=== PATIENT | male | born 1940 | race Caucasian/White ===

== ENCOUNTER → 2017-10-26 | Outpatient (CLI) | payer MEDICARE, OTHER ==
[~2017-10-26] MED LIST: APAP650 PO; ASPIR 8181 MG PO; ATORVASTATIN CA40 MG PO; BRILINTA90 MG PO; CARVEDILOL3.125 MG PO; CHOLESTEROL MED; CIPROFLOXIN HC2.5 M1 OPHTHALMIC; ERYTHROMYCIN E3.5 G1 OPHTHALMIC; FLEXERIL PO; HYDROCODONE-AP1 EAC6 PO; LISINOPRIL2.5 M1 PO; NAPROSYN375 MG PO; NITROGLYCERIN0.4 MG SUBLING; NOHOMEMEDICATIONS; NORCO 5-325 TA1 EACH PO; PERCOCET 5-3251 EACH PO; PERCOCET PO; PRADAXA75 MG PO; PROTONIX40 M1 PO; STOMACH MED; TAMSULOSIN HCL0.4 MG PO; TYLENOL325 MG PO; [UNRECOGNIZED DRUG - REMARK] PO
[2017-10-26 09:06] LABS: ALBUMIN 3.8 g/dL (3.4-5.0); ALKALINE PHOSPHATASE 100 U/L (46-116); CHOLESTEROL 171 mg/dL (<200); DIRECT BILIRUBIN 0.2 mg/dL (<0.1-0.3); HDL CHOLESTEROL 52 mg/dL (>40); LDL CHOLESTEROL 96 mg/dL (<100); SGOT 25 U/L (15-37); SGPT 31 U/L (30-65); TC:HDL 3.3 Ratio (Not establshd); TOTAL BILIRUBIN 0.7 mg/dL (<0.1-1.0); TOTAL PROTEIN 6.6 g/dL (6.4-8.2); TRIGLYCERIDE 115 mg/dL (<150); VLDL 23 mg/dL (<40)
[2017-10-26 09:08] LABS: SERUM ASSESSMENT Clear
== END ==
LOC: M.LAB 08:07
PROVIDERS: Family Medicine
DX: I70.90 Unspecified atherosclerosis (principal)

== ENCOUNTER → 2017-10-27 | Outpatient (CLI) | payer MEDICARE, OTHER ==
[2017-10-27 08:35] LABS: HEMATOCRIT 47.2 % (42.0-52.0); MCH 30.4 pg (26.0-34.0); MCHC 33.9 g/dL (28.0-37.0); MCV 89.8 fL (80.0-100.0); MPV 9.1 fl. (7.2-11.1); RBC 5.26 mil/uL (4.50-6.00); RDW-CV 13.5 % (10.5-14.5); WBC 4.6 thou/uL (4.0-11.0)
[2017-10-27 08:43] LABS: URINE BILIRUBIN NEGATIVE (Negative); URINE BLOOD 1+ (Negative); URINE CLARITY CLEAR; URINE COLOR YELLOW; URINE GLUCOSE-RANDOM NEGATIVE (Negative); URINE KETONES NEGATIVE (Negative); URINE LEUKOCYTES 1+ (Negative); URINE NITRITE NEGATIVE (Negative); URINE PROTEIN NEGATIVE (Negative); URINE SPECIFIC GRAVITY 1.015 (1.005-1.030); URINE UROBILINOGEN 0.2 E.U./dl (0.2-1.0)
[2017-10-27 08:53] LABS: BACTERIA 1-9 Few /HPF (None Seen); CASTS None Seen /LPF (None Seen); CRYSTALS None Seen /LPF (None Seen); MUCUS 0-3 Light strn/LPF (None Seen); SQUAMOUS 0-3 Few /LPF (0-3); URINE RBC 3-10 Few /HPF (0-2); URINE WBC 6-15 Few /HPF (0-5)
[2017-10-27 08:58] LABS: ALBUMIN 3.8 g/dL (3.4-5.0); CALCIUM 8.8 mg/dL (8.5-10.1); CREATININE 1.3 mg/dL (0.6-1.3); PHOSPHORUS* 2.7 mg/dL (2.5-4.9); POTASSIUM 4.8 mmol/L (3.5-5.1)
[2017-10-28 02:11] LABS: GLYCOHEMOGLOBIN (HGB A1C) 5.3 % (4.8-5.6)
== END ==
LOC: M.LAB 08:11
PROVIDERS: Family Medicine
DX: C64.9 Malignant neoplasm of unspecified kidney, except renal pelvis (principal); I70.90 Unspecified atherosclerosis; R79.89 Other specified abnormal findings of blood chemistry; I10 Essential (primary) hypertension; I25.10 Atherosclerotic heart disease of native coronary artery without angina pectoris; E78.5 Hyperlipidemia, unspecified

== ENCOUNTER → 2018-01-20 | Outpatient (CLI) | payer MEDICARE, OTHER ==
[2018-01-20 06:57] LABS: CREATININE 1.4 mg/dL (0.6-1.3)
== END ==
LOC: M.CT 06:33 → M.LAB 07:00 → M.CT 08:00
PROVIDERS: Family Medicine
DX: I70.0 Atherosclerosis of aorta (principal); I70.8 Atherosclerosis of other arteries; J43.9 Emphysema, unspecified; R91.1 Solitary pulmonary nodule; N18.9 Chronic kidney disease, unspecified; Z90.5 Acquired absence of kidney; Z85.828 Personal history of other malignant neoplasm of skin

== ENCOUNTER 2018-07-05 17:17 | Inpatient (IN) | payer MEDICARE, OTHER ==
[~2018-07-05] VITALS: Ht 182.9 cm; Wt 72.1 kg
--- NOTE | ~2018-07-05 | OP ---
[facility] [address] [place] [address] OPERATIVE REPORT Name: KAILYN DYER Room: [address] IN M.R.#: [id number] Admission: 07/05/18 Attend Phys: Marely Petersen Discharge: Date of : 36 Report #: [id number] THIS REPORT FOR: //name// CC: AZIZA Hdz DATE OF SERVICE: 07/06/2018 PREOPERATIVE DIAGNOSIS: Clot retention. POSTOPERATIVE DIAGNOSIS: Clot retention. PROCEDURE: Cystourethroscopy, evacuation of clots and fulguration of bladder bleeding. SURGEON: Lissa Pretty M.D. ANESTHESIA: General. ESTIMATED BLOOD LOSS: None. COMPLICATIONS: None. SPECIMENS: None. INDICATION FOR PROCEDURE: The patient is an 78-year-old male who has a complex history. He underwent TURBT and left ureteroscopy with Dr. Hays on 07/04. He presented yesterday to the office for a voiding trial. He was having gross hematuria at that time, but no clots. Reyes was removed, and initially, they replaced the catheter when I guess he could not void. The urine became increasingly more bloody and clotted off, and he presented to [place] [facility]. Irrigation at the bedside did not clear him up, and therefore, it was recommended he undergo cystoscopy, clot evacuation and fulguration of any bleeding. Risks of procedure were discussed including but not limited to infection, bleeding, injury to the urethra, bladder, ureters, bladder perforation requiring open repair, cardiopulmonary complications. He voiced understanding and wished to proceed. DESCRIPTION OF PROCEDURE: After informed consent was obtained, the patient was taken back to the operating suite and placed supine. After induction of general anesthesia, he was placed in dorsal lithotomy position. Genitalia were prepped and draped in standard fashion. Rigid cystoscopy was performed. Anterior urethra was normal. Prostate showed visual obstruction and evidence of some cautery in the prostatic urethra. Immediately on entrance into the bladder, visualization was very poor as there was a large [place] [address] OPERATIVE REPORT Name: KAILYN DYER Room: [address] IN [facility].#: [id number] Admission: 07/05/18 Attend Phys: Marely Petersen Discharge: Date of : 38 Report #: [id number] Changed out to a 24-Ugandan resectoscope and using the Marcus evacuator, several 100 mL of clot were evacuated. This was somewhat difficult at times and some of the clot was pretty sticky to the argueta of the bladder, but eventually this was successful after a significant amount of irrigations. The resectoscope was reintroduced after all the clot had been evacuated. There was some adherent clot to the right dome of the bladder where there appeared to be some active bleeding. The clot was scraped off with the loop, and the area was then thoroughly cauterized with the loop. This was successful in controlling the bleeding. The bladder looked pretty beat up from the previous resection as well as just multiple catheter irrigations. The posterior wall appeared consistent with prior resection as some muscle fibers were seen, and he just had a lot of edema and adherent clot to several areas in the bladder, all of which were scraped off. I cauterized any additional areas, I felt were tenuous. There was a bleeder right at the bladder neck as well that I cauterized. After several emptying and fillings of the bladder with the irrigation off, everything was examined, and there was no further bleeding. Hemostasis was excellent. There was no perforation and cystoscopic bubble was visible at the end of the case. The scope was then removed, and a 22 Ugandan 3-way catheter was placed, 30 mL was placed in the balloon with sterile water. The catheter was irrigated with Eloy syringe and remained clear. This was attached to normal saline CBI at a slow drip. The patient was awoken, extubated and taken to recovery in satisfactory condition. He will be admitted back to the floor on CBI. We will titrate that to off if possible and hopefully be able to discharge him tomorrow. By: 1404 [id number] Pretty MD /cris
[2018-07-05 17:28] VITALS: BP 157/97
[2018-07-05 18:04] LABS: ABSOLUTE BASOPHILS 0.1 thou/uL (0.0-0.2); ABSOLUTE EOSINOPHILS 0.3 thou/uL (0.0-0.7); ABSOLUTE LYMPHOCYTES 2.7 thou/uL (0.8-5.3); ABSOLUTE MONOCYTES 1.2 thou/uL (0.0-1.2); ABSOLUTE NEUTROPHILS 7.9 thou/uL (1.6-8.1); BASOPHILS 0.5 %; EOSINOPHILS 2.3 %; HEMATOCRIT 39.9 % (42.0-52.0); HEMOGLOBIN 13.3 gm/dL (14.0-18.0); LYMPHOCYTES 22.3 %; MCH 30.3 pg (26.0-34.0); MCHC 33.2 g/dL (28.0-37.0); MPV 9.3 fl. (7.2-11.1); NUCLEATED RBCS 0 /100WBC; PLATELET COUNT* 156 thou/uL (150-400); POLYS 64.9 %; RBC 4.39 mil/uL (4.50-6.00); RDW-CV 13.9 % (10.5-14.5); WBC 12.2 thou/uL (4.0-11.0)
[2018-07-05 18:10] LABS: APTT 26.1 Seconds (25.0-31.3); CALCIUM 8.7 mg/dL (8.5-10.1); CREATININE 1.4 mg/dL (0.6-1.3); PROTIME 10.7 Seconds (9.20-11.50)
[2018-07-05 18:14] LABS: ALBUMIN 3.3 g/dL (3.4-5.0); TOTAL BILIRUBIN 0.4 mg/dL (<0.1-1.0)
[2018-07-05 21:53] VITALS: BP 148/79
[2018-07-05 22:14] VITALS: BP 127/75
[2018-07-06 08:20] VITALS: BP 134/72
[2018-07-06 12:01] VITALS: BP 134/72
[2018-07-06 12:28] VITALS: BP 135/70
[2018-07-06 15:52] VITALS: BP 111/60
--- NOTE | 2018-07-06 16:23 | EKG ---
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: : 1940 Requested By: Lissa Pretty Order Number: [id number] Adonay MD: Himanshu Mcmahan Measurements Intervals [place] Rate: 71 P: 71 CT: 160 QRS: 81 QRSD: 108 T: 82 QT: 414 QTc: 450 Interpretive Statements Sinus rhythm Consider right ventricular hypertrophy Baseline wander in lead(s) V1,V2 Partial missing lead(s): V1 Compared to ECG 04/06/2017 18:17:28 No significant changes Electronically Signed On 07-06-2018 16:23:13 FINANCIAL INVESTIGATOR by Himanshu Mcmahan [email or web address] <ELECTRONICALLY SIGNED> By: Himanshu Mcmahan MD, FAC 07/06/18 1623 1030 1030 Himanshu Mcmahan MD, [facility] /EPI
[2018-07-06 20:45] VITALS: BP 104/53
[2018-07-06 21:10] VITALS: BP 104/53
[2018-07-07] VITALS: BP 96/53
[2018-07-07 03:44] LABS: HEMATOCRIT 31.8 % (42.0-52.0); MCH 30.8 pg (26.0-34.0); MCHC 33.3 g/dL (28.0-37.0); MCV 92.5 fL (80.0-100.0); MPV 9.4 fl. (7.2-11.1); RBC 3.44 mil/uL (4.50-6.00); RDW-CV 14.1 % (10.5-14.5); WBC 10.2 thou/uL (4.0-11.0)
[2018-07-07 04:00] VITALS: BP 108/63
[2018-07-07 04:00] LABS: CALCIUM 7.9 mg/dL (8.5-10.1); CREATININE 1.2 mg/dL (0.6-1.3); MAGNESIUM 1.7 mg/dL (1.8-2.4); POTASSIUM 4.5 mmol/L (3.5-5.1)
[2018-07-07 04:06] LABS: HEMOGLOBIN 10.6 gm/dL (14.0-18.0)
[2018-07-07 07:43] VITALS: BP 127/59
[2018-07-07] MEDS ORDERED: LEVSIN0.125 MG PO (08:57)
[2018-07-07] MEDS ORDERED: NORCO 10-325 T1 EACH PO (08:57)
[2018-07-07 09:33] VITALS: BP 127/59
[2018-07-07 12:19] LABS: HEMATOCRIT 31.1 % (42.0-52.0); HEMOGLOBIN 10.2 gm/dL (14.0-18.0); MCH 30.4 pg (26.0-34.0); MCHC 32.8 g/dL (28.0-37.0); MCV 92.6 fL (80.0-100.0); MPV 9.4 fl. (7.2-11.1); RBC 3.35 mil/uL (4.50-6.00); RDW-CV 13.8 % (10.5-14.5); WBC 10.2 thou/uL (4.0-11.0)
== END 2018-07-07 13:25 | disposition home or self-care (01) | DRG 669 ==
LOC: M.ERS 17:17 → M.ORTHSURG 20:51 → M.TBA-ER 20:51 → M.ORTHSURG 20:51
PROVIDERS: Internal Medicine; Nurse Practitioner Family; ADMIT Internal Medicine
PROC: 0T5B8ZZ Destruction of Bladder, Via Natural or Artificial Opening Endoscopic (ICD-10-PCS; principal; 2018-07-06)
PROC: 0TCB8ZZ Extirpation of Matter from Bladder, Via Natural or Artificial Opening Endoscopic (ICD-10-PCS; principal; 2018-07-06)
DX: T83.83XA Hemorrhage due to genitourinary prosthetic devices, implants and grafts, initial encounter (principal); E44.1 Mild protein-calorie malnutrition; N40.1 Benign prostatic hyperplasia with lower urinary tract symptoms; Y83.8 Other surgical procedures as the cause of abnormal reaction of the patient, or of later complication, without mention of misadventure at the time of the procedure; R31.0 Gross hematuria; I12.9 Hypertensive chronic kidney disease with stage 1 through stage 4 chronic kidney disease, or unspecified chronic kidney disease; N18.3 Chronic kidney disease, stage 3 (moderate); I25.10 Atherosclerotic heart disease of native coronary artery without angina pectoris; R33.8 Other retention of urine; E78.5 Hyperlipidemia, unspecified; F17.210 Nicotine dependence, cigarettes, uncomplicated; Z96.642 Presence of left artificial hip joint; Z95.5 Presence of coronary angioplasty implant and graft; Z86.711 Personal history of pulmonary embolism; I25.2 Old myocardial infarction; Z68.21 Body mass index [BMI] 21.0-21.9, adult; Z85.51 Personal history of malignant neoplasm of bladder; Z85.528 Personal history of other malignant neoplasm of kidney; Z90.5 Acquired absence of kidney; Z79.899 Other long term (current) drug therapy; Y92.89 Other specified places as the place of occurrence of the external cause

== ENCOUNTER → 2019-05-23 | Outpatient (CLI) | payer MEDICARE, OTHER ==
[~2019-05-23] MED LIST changes: +LEVSIN0.125 MG PO; +NORCO 10-325 T1 EACH PO
--- NOTE | 2019-05-23 13:37 | EKG ---
[place] [address] ELECTROCARDIOGRAM REPORT Name: KAILYN DYER Room: [facility]#: [id number] Admission: 05/23/19 Attend Phys: Himanshu Hays MD Discharge: Date of : 38 Report #: [id number] THIS REPORT FOR: //name// [facility] Test Date: 2019-05-23 Test Time: 11:11:31 Pat Name: KAILYN DYER Department: Room: Gender: Dye Box Operator: : 1940 Requested By: Himanshu Hays Order Number: [id number] [place] MD: Roderick Vigil Measurements Intervals [place] Rate: 58 P: 86 MS: 177 QRS: 84 QRSD: 109 T: 87 QT: 461 QTc: 453 Interpretive Statements Sinus rhythm Borderline right axis deviation Compared to ECG 07/06/2018 10:30:16 No significant changes Electronically Signed On 05-23-2019 13:37:19 CDT by Roderick Vigil [email or web address] <ELECTRONICALLY SIGNED> By: Roderick Vigil MD, [facility] 05/23/19 1337 1111 1111 Roderick Vigil MD, FACC /EPI
== END ==
LOC: M.RAD 10:52
DX: D49.4 Neoplasm of unspecified behavior of bladder (principal)

== ENCOUNTER 2020-12-16 14:52 | Inpatient (IN) | payer MEDICARE ==
[~2020-12-16] VITALS: Ht 182.9 cm; Wt 71.7 kg
[2020-12-16 15:31] LABS: HEMATOCRIT 52.7 % (42.0-52.0); MCH 30.8 pg (26.0-34.0); MCHC 34.1 g/dL (28.0-37.0); MCV 90.4 fL (80.0-100.0); MPV 8.9 fl. (7.2-11.1); NUCLEATED RBCS 0 /100WBC; PLATELET COUNT* 157 thou/uL (150-400); RBC 5.83 mil/uL (4.50-6.00); RDW-CV 13.9 % (10.5-14.5)
[2020-12-16 15:41] LABS: CALCIUM 10.1 mg/dL (8.5-10.1); CREATININE 1.7 mg/dL (0.6-1.3); POTASSIUM 4.5 mmol/L (3.5-5.1)
[2020-12-16 15:45] LABS: ALBUMIN 4.3 g/dL (3.4-5.0); TOTAL BILIRUBIN 0.5 mg/dL (<0.1-1.0); TOTAL PROTEIN 8.1 g/dL (6.4-8.2)
[2020-12-16 16:01] LABS: ABSOLUTE LYMPHOCYTES 1.1 thou/uL (0.8-5.3); ABSOLUTE MONOCYTES 0.2 thou/uL (0.0-1.2); ABSOLUTE NEUTROPHILS 6.7 thou/uL (1.6-8.1)
[2020-12-16 16:02] LABS: PLATELET ESTIMATE ADEQUATE
[2020-12-16 17:05] LABS: URINE BILIRUBIN NEGATIVE (Negative); URINE BLOOD TRACE (Negative); URINE CLARITY CLEAR; URINE COLOR YELLOW; URINE GLUCOSE-RANDOM NEGATIVE (Negative); URINE KETONES NEGATIVE (Negative); URINE PROTEIN TRACE (Negative); URINE SPECIFIC GRAVITY 1.015 (1.005-1.030); URINE UROBILINOGEN 0.2 E.U./dl (0.2-1.0)
[2020-12-16 17:07] LABS: URINE LEUKOCYTES-REFLEX 2+ (Negative); URINE NITRITE-REFLEX POSITIVE (Negative)
[2020-12-16 17:12] LABS: HYALINE CASTS 0-3 Few /LPF (None Seen); SQUAMOUS NONE SEEN /LPF (0-3)
[2020-12-16 17:14] LABS: MUCUS 0-3 Light strn/LPF (None Seen)
[2020-12-16 17:19] LABS: URINE RBC 0-2 Rare /HPF (0-2); URINE WBC-REFLEX 6-15 Few /HPF (0-5)
[2020-12-16 17:20] LABS: AMORPHOUS URATES Few /LPF (None Seen)
[2020-12-16 20:09] VITALS: BP 130/75
[2020-12-16 21:11] VITALS: BP 136/79
[2020-12-17 04:42] LABS: ABSOLUTE EOSINOPHILS 0.3 thou/uL (0.0-0.7); ABSOLUTE LYMPHOCYTES 0.7 thou/uL (0.8-5.3); ABSOLUTE MONOCYTES 0.8 thou/uL (0.0-1.2); ABSOLUTE NEUTROPHILS 5.2 thou/uL (1.6-8.1); BASOPHILS 0.3 %; EOSINOPHILS 3.7 %; HEMATOCRIT 46.4 % (42.0-52.0); LYMPHOCYTES 9.5 %; MCH 30.2 pg (26.0-34.0); MCHC 33.6 g/dL (28.0-37.0); MCV 89.8 fL (80.0-100.0); MONOCYTES 11.3 %; MPV 8.7 fl. (7.2-11.1); NUCLEATED RBCS 0 /100WBC; PLATELET COUNT* 137 thou/uL (150-400); POLYS 75.2 %; RBC 5.17 mil/uL (4.50-6.00); RDW-CV 13.8 % (10.5-14.5)
[2020-12-17 04:48] LABS: CALCIUM 8.6 mg/dL (8.5-10.1); CREATININE 1.5 mg/dL (0.6-1.3); HEMOGLOBIN 15.6 gm/dL (14.0-18.0); POTASSIUM 4.8 mmol/L (3.5-5.1)
--- NOTE | 2020-12-17 06:02 | NUR ---
PATIENT ADMITTED TO ROOM 115 FROM THE ER AT APPROXIMATELY 1950. REPORT GIVEN FROM NURSE ROWLEY. PATIENT A/O X 4 AND VSS ON RA. PATIENT VERY GRUMPY AND IRRITABLE WITH STAFF. PATIENT ORIENTED TO ROOM AND POLICIES. FALL EDUCATION GIVEN AND FALL AGREEMENT SIGNED. PATIENT VERBALIZED UNDERSTANDING. ADMISSION ASSESSMENT CHARTED. IV IN LEFT AC-SL. PATIENT INSTRUCTED TO USE CALL LIGHT WHEN NEEDING ASSISTANCE. HOURLY ROUNDS MADE. WILL CONTINUE WITH PLAN OF CARE AND NURSING TO MONITOR.
[2020-12-17 08:00] VITALS: BP 105/70
--- NOTE | 2020-12-17 12:36 | NUR ---
THIS NURSE AGREES WITH ASSESSMENT
--- NOTE | 2020-12-17 12:46 | EKG ---
[place] [address] ELECTROCARDIOGRAM REPORT Name: KAILYN DYER [place] Room: [address] IN M.R.#: [id number] Admission: 12/16/20 Attend Phys: Carrillo Bhat, Discharge: 12/19/20 Date of : 36 Date of Service: 12/16/20 1507 Report #: [id number] THIS REPORT FOR: //name// [facility] ED Test Date: 2020-12-16 Test Time: 15:07:14 Pat Name: KAILYN DYER Department: Room: [facility] Gender: M Cashier Or Checker Stock Clerk: DONN : 1940 Requested By: Landon Joe Order Number: [id number] MD: Himanshu Mcmahan Measurements Intervals [place] Rate: 75 P: 77 [place]: 166 QRS: 88 QRSD: 129 T: 56 QT: 409 QTc: 457 Interpretive Statements Sinus rhythm Right bundle branch block No previous ECG available for comparison Electronically Signed On 12-17-2020 12:46:15 CDT by Himanshu Mcmahan [email or web address] <ELECTRONICALLY SIGNED> By: Himanshu Mcmahan MD, [facility] 12/17/20 1246 1507 1507 Himanshu Mcmahan MD, [facility] /EPI
--- NOTE | 2020-12-17 14:13 | NUR ---
Pt is A&O. Resides at home alone. Supportive dtr that is involved in POC. Independent. No DME. No hx of HH or SNF. GI consulted. Goal is home at dc, anticipate dc in a few days, no needs anticipated.
[2020-12-17 16:54] VITALS: BP 140/76
--- NOTE | 2020-12-17 17:20 | NUR ---
PATIENT RESTING IN BED. C/O PAIN EVERYWHERE, REFUSED PAIN MEDS. REFUSED ENEMA. UROSTOMY INPLACE. UP AD ALLIE. REMAINS NPO EXCEPT ICECHIPS. ALERT AND ORIENTED X4. ALL QUESTIONS AND CONCERNS ADDRESSED.
[2020-12-17 20:00] VITALS: BP 136/87
[2020-12-18 04:00] LABS: ALBUMIN 3.1 g/dL (3.4-5.0); CALCIUM 8.2 mg/dL (8.5-10.1); CREATININE 1.4 mg/dL (0.6-1.3); MAGNESIUM 1.9 mg/dL (1.8-2.4); TOTAL BILIRUBIN 0.4 mg/dL (<0.1-1.0)
[2020-12-18 04:39] LABS: HEMATOCRIT 42.9 % (42.0-52.0); HEMOGLOBIN 14.3 gm/dL (14.0-18.0); MCHC 33.3 g/dL (28.0-37.0); MCV 90.2 fL (80.0-100.0); RBC 4.76 mil/uL (4.50-6.00); RDW-CV 14.1 % (10.5-14.5); WBC 4.8 thou/uL (4.0-11.0)
--- NOTE | 2020-12-18 05:12 | NUR ---
PT ALERT AND ORIENTED, NPO WITH EXCEPTION OF SOME ICE CHIPS. RECEIVED FLUIDS ALL SHIFT, UP WALKING HALLWAYS SEVERAL TIMES. ROOM AIR, NO FEVER. NO REPORTS OF ANY PAIN OR NAUSEA ON SEVERAL ASSESSMENTS. HE WALKED A FEW TIMES AND SLEPT THE REST OF THE SHIFT.
[2020-12-18 07:45] VITALS: BP 148/83
--- NOTE | 2020-12-18 12:28 | NUR ---
Xray this AM. GI following, Pt having a small bowel follow through today.
--- NOTE | 2020-12-18 15:34 | CON ---
[address] [address] CONSULTATION Name: KAILYN DYER Room: [address] IN M.R.#: [id number] Admission: 12/16/20 Attend Phys: Carrillo Bhat MD Discharge: 12/19/20 Date of : 38 Report #: [id number] THIS REPORT FOR: cc: [facility] - Clinic physician unknown [facility] - Clinic physician unknown Elmer Sawyer DO ~ DOC #: [id number] SUSU Ralph DATE OF CONSULTATION: 12/18/2020 The patient does not have a PCP. Please note at the time of this dictation, the patient was seen and physically examined by myself. REASON FOR CONSULTATION: Abdominal pain. HISTORY OF PRESENT ILLNESS: This is an 80-year-old male who presents to the emergency room with complaints of abdominal discomfort. He states he had nausea, vomiting, some diarrhea. He had diaphoresis. He had a runny nose and his pain was waxing and waning in severity. At the present time, the patient is complaining of very minimal if any discomfort. He states his bowels have moved and he is passing some gas at this particular time. The patient states he had a colonoscopy done many years ago at [facility], but I am unable to see when that was done in the past. The patient states he is hungry and would like to eat. ALLERGIES: No known drug allergies. MEDICATIONS: From home, he takes a stool softener. PAST MEDICAL HISTORY: History of bladder cancer and previous kidney cancer. He is status post urostomy and ileal conduit, which was done last year. He has had no further nausea or vomiting since admission and he does take a stool softener on a daily basis and bowels move regularly. PAST SURGICAL HISTORY: Bladder removal and right nephrectomy. FAMILY HISTORY: Noncontributory. SOCIAL HISTORY: Denies any alcohol, tobacco, or illegal drug use. REVIEW OF SYSTEMS: Twelve point review of systems is essentially negative except what is mentioned in the HPI. PHYSICAL EXAMINATION: [place] [address] CONSULTATION Name: KAILYN DYER Room: [address] IN [facility]#: [id number] Admission: 12/16/20 Attend Phys: Carrillo Bhat MD Discharge: Date of : 38 Report #: [id number] VITAL SIGNS: Temperature 36.4, pulse 71, respirations 14, blood pressure 136/87. HEART: Regular rate and rhythm. LUNGS: Clear. ABDOMEN: Soft, positive bowel sounds in all four quadrants with no tenderness noted to palpation, noted an ileal conduit in the right lower quadrant. Stoma was pink, well perfused and clear yellow urine in bag. LABORATORY DATA: Hemoglobin 14.3, white count 4.8, platelets 123. GFR is 49. LFTs are completely normal. Abdominal x-ray shows moderate stool over the hepatic, transverse and distal colon. CT of the abdomen and pelvis shows distal small bowel obstruction with irregular focal circumferential wall thickening at the mid ileum with dilatation of the small bowel proximal to this, the area of soft tissue thickening is at the site of the surgical staple line, presumably from the previous ileal conduit creation, previous right nephrectomy and radical cystotomy with right abdominal wall urostomy. IMPRESSION: 1. Abdominal pain, improved. 2. Small bowel obstruction, improving. 3. Nausea and vomiting, resolved. 4. Constipation, takes a stool softener at home. 5. Thrombocytopenia. 6. Chronic kidney disease, stage 3. 7. History of kidney or bladder cancer in the past. PLAN: 1. Clear liquid diet to see if he tolerates. 2. Continue his bowel regimen from home. 3. The patient refuses any endoscopic evaluation at this time. 4. Further recommendations to be made once Dr. Sawyer sees the patient later today. Thank you for allowing us to participate in this patient's care. Please do not hesitate to call with any questions regarding this consult. [place] [address] CONSULTATION Name: KAILYN DYER Room: [address] IN .R.#: [id number] Admission: 12/16/20 Attend Phys: Carrillo Bhat MD Discharge: Date of : 38 Report #: [id number] <ELECTRONICALLY SIGNED> By: Elmer Sawyer DO 12/18/20 1534 0958 1100Elmer Sawyer DO /nt
[2020-12-18 16:00] VITALS: BP 118/76
--- NOTE | 2020-12-18 17:16 | NUR ---
PT ALERT AND ORIENTED X 4. PT HAS LEFT UPPER ARM MIDLINE WITH FLUIDS INFUSING AT THIS TIME. PT DENIES ANY ABDOMINAL PAIN AT THIS TIME. PT ALSO REPORTS NO NAUSEA. NO EMESIS NOTED. PT TOLERATING INCREASED DIET. TOLERATES FULL LIQUID DIET. PT REMAINS STEADILY AMBULATORY AND DOES WALK AROUND THE WISE. WILL CONTINUE TO INCREASE DIET TOLERATED. SPOKE WITH HIS DAUGHTER THIS AM. PT REPORTS CHRONIC BACK AND NECK PAIN THAT IS TOLERABLE. DENIES NEED FOR ANY PAIN MEDICATION. PT TAKES CARE OF UROSTOMY. CALL LIGHT WITHIN REACH. VSS. WILL CONTINUE TO MONITOR.
--- NOTE | 2020-12-18 17:28 | NUR ---
SPOKE WITH PT'S DAUGHTER. INFORMED THAT PT IS TOLERATING PO INTAKE WELL. IV REMAINS IN PLACE. LABS IN AM. DENIES ABDOMINAL PAIN AND NAUSEA. WILL EVALUTE XRAY IN AM AND UPDATE PLAN OF CARE. PER REPORT DR. CASTRO SPOKE WITH HER EARLIER TODAY WELL.
[2020-12-18 21:00] VITALS: BP 111/70
[2020-12-19 04:20] LABS: HEMATOCRIT 41.3 % (42.0-52.0); HEMOGLOBIN 13.8 gm/dL (14.0-18.0); MCH 30.3 pg (26.0-34.0); MCHC 33.4 g/dL (28.0-37.0); MCV 90.7 fL (80.0-100.0); MPV 8.5 fl. (7.2-11.1); RBC 4.56 mil/uL (4.50-6.00); RDW-CV 13.5 % (10.5-14.5); WBC 5.5 thou/uL (4.0-11.0)
[2020-12-19 04:36] LABS: CALCIUM 8.4 mg/dL (8.5-10.1); CREATININE 1.4 mg/dL (0.6-1.3); POTASSIUM 4.4 mmol/L (3.5-5.1); TOTAL BILIRUBIN 0.4 mg/dL (<0.1-1.0); TOTAL PROTEIN 5.9 g/dL (6.4-8.2)
--- NOTE | 2020-12-19 05:29 | NUR ---
PT A&O X 4. VSS ON RA. DENIED ABD PAIN OR N/V. TYLENOL GIVEN FOR BACK PAIN. PT WALKED DOWN THE HALLWAY FREQUENTLY. IVF INFUISING ORDERED. UROSTOMY BAG IN PLACE. CALL LIGHT WITHIN REACH. WILL CONTINUE TO MONITOR.
[2020-12-19 07:30] VITALS: BP 124/49
[2020-12-19 10:44] VITALS: BP 124/49
[2020-12-19 11:05] VITALS: BP 124/49
--- NOTE | 2020-12-19 11:36 | NUR ---
PT ALERT AND ORIENTED X 4. PT TOLERATING PO INTAKE AND SOLID FOODS. DENIES NAUSEA AND ABDOMINAL PAIN AT THIS TIME. PT STEADILY AMBULATORY. LEFT UPPER ARM MIDLINE REMOVED AND DOCUMENTED. PT DENIES ANY COMPLAINTS AT THIS TIME. PT TO FOLLOW UP WITH PCP.
[2020-12-19 11:37] VITALS: BP 124/49
== END 2020-12-19 11:39 | disposition home or self-care (01) | DRG 388 ==
LOC: M.ERS 14:52 → M.ORTHSURG 17:08 → M.TBA-ER 17:08 → M.ORTHSURG 17:08
PROVIDERS: Emergency Medicine Emergency Medical Services; Internal Medicine; ADMIT Internal Medicine; ATTEND Internal Medicine
PROC: 05HY33Z Insertion of Infusion Device into Upper Vein, Percutaneous Approach (ICD-10-PCS; principal; 2020-12-18)
DX: K56.609 Unspecified intestinal obstruction, unspecified as to partial versus complete obstruction (principal); N17.0 Acute kidney failure with tubular necrosis; Z20.822 Contact with and (suspected) exposure to COVID-19; E86.0 Dehydration; G89.29 Other chronic pain; M54.9 Dorsalgia, unspecified; D69.6 Thrombocytopenia, unspecified; K59.00 Constipation, unspecified; N18.30 Chronic kidney disease, stage 3 unspecified; Z85.51 Personal history of malignant neoplasm of bladder; Z85.528 Personal history of other malignant neoplasm of kidney

== ENCOUNTER 2021-08-22 08:10 | Emergency (ER) | payer MEDICARE, OTHER ==
[~2021-08-22] VITALS: Ht 182.9 cm; Wt 66.7 kg
[2021-08-22 09:08] LABS: ABSOLUTE BASOPHILS 0.1 thou/uL (0.0-0.2); ABSOLUTE EOSINOPHILS 0.5 thou/uL (0.0-0.7); ABSOLUTE LYMPHOCYTES 0.9 thou/uL (0.8-5.3); ABSOLUTE MONOCYTES 0.7 thou/uL (0.0-1.2); ABSOLUTE NEUTROPHILS 3.5 thou/uL (1.6-8.1); BASOPHILS 1.3 %; EOSINOPHILS 8.3 %; HEMATOCRIT 42.6 % (42.0-52.0); LYMPHOCYTES 15.2 %; MCH 29.5 pg (26.0-34.0); MCHC 32.9 g/dL (28.0-37.0); MCV 89.8 fL (80.0-100.0); MPV 8.5 fl. (7.2-11.1); NUCLEATED RBCS 0 /100WBC; PLATELET COUNT* 142 thou/uL (150-400); POLYS 62.2 %; RBC 4.74 mil/uL (4.50-6.00); RDW-CV 13.9 % (10.5-14.5); WBC 5.7 thou/uL (4.0-11.0)
[2021-08-22 09:17] LABS: CALCIUM 8.4 mg/dL (8.5-10.1); CREATININE 1.5 mg/dL (0.6-1.3); POTASSIUM 4.3 mmol/L (3.5-5.1)
[2021-08-22 09:21] LABS: ALBUMIN 3.1 g/dL (3.4-5.0); MAGNESIUM 1.9 mg/dL (1.8-2.4); TOTAL BILIRUBIN 0.2 mg/dL (<0.1-1.0); TOTAL PROTEIN 5.9 g/dL (6.4-8.2)
--- NOTE | 2021-08-22 11:24 | EKG ---
[place] [address] ELECTROCARDIOGRAM REPORT Name: KAILYN DYER Room: [facility]#: [id number] Admission: 08/22/21 Attend Phys: Discharge: Date of : 36 Date of Service: 08/22/21815 Report #: [id number] THIS REPORT FOR: //name// [facility] ED Test Date: 2021-08-22 Test Time: 08:16:32 Pat Name: KAILYN DYER Department: Room: Gender: Plant Assigner: : 1940 Requested By: Landon Joe Order Number: [id number] MD: Himanshu Mcmahan Measurements Intervals [place] Rate: 75 P: 94 TX: 160 QRS: 107 QRSD: 130 T: 66 QT: 392 QTc: 438 Interpretive Statements Sinus rhythm RBBB and LPFB Compared to ECG 12/16/2020 15:07:14 Left posterior fascicular block now present Electronically Signed On 08-22-2021 11:24:37 COMMERCIAL LOAN SPECIALIST by Himanshu Mcmahan [email or web address] <ELECTRONICALLY SIGNED> By: Himanshu Mcmahan MD, [facility] 08/22/21 1124 5 5 Himanshu Mcmahan MD, [facility] /EPI
[2021-08-22] MEDS ORDERED: ELIQUIS5 MG PO ×2 (12:36→12:45)
[2021-08-22 13:11] VITALS: BP 120/70
== END 2021-08-22 13:11 | disposition left against medical advice (07) ==
LOC: M.ERS 08:10
PROVIDERS: Emergency Medicine Emergency Medical Services
DX: I26.99 Other pulmonary embolism without acute cor pulmonale (principal); C34.90 Malignant neoplasm of unspecified part of unspecified bronchus or lung; C16.9 Malignant neoplasm of stomach, unspecified; I25.10 Atherosclerotic heart disease of native coronary artery without angina pectoris; I12.9 Hypertensive chronic kidney disease with stage 1 through stage 4 chronic kidney disease, or unspecified chronic kidney disease; N18.9 Chronic kidney disease, unspecified; E78.5 Hyperlipidemia, unspecified; Z95.5 Presence of coronary angioplasty implant and graft; Z90.5 Acquired absence of kidney; Z79.899 Other long term (current) drug therapy

== ENCOUNTER 2021-09-27 17:59 | Inpatient (IN) | payer OTHER, MEDICARE ==
[~2021-09-27] VITALS: Ht 182.9 cm; Wt 64.2 kg
[~2021-09-27 17:59] MED LIST changes: +ELIQUIS5 MG PO
[2021-09-27 18:10] VITALS: BP 131/73
[2021-09-27 19:00] LABS: ABSOLUTE EOSINOPHILS 0.2 thou/uL (0.0-0.7); ABSOLUTE LYMPHOCYTES 1.2 thou/uL (0.8-5.3); ABSOLUTE NEUTROPHILS 6.1 thou/uL (1.6-8.1); BASOPHILS 0.4 %; EOSINOPHILS 2.5 %; HEMATOCRIT 46.2 % (42.0-52.0); HEMOGLOBIN 15.4 gm/dL (14.0-18.0); LYMPHOCYTES 14.4 %; MCH 29.7 pg (26.0-34.0); MCHC 33.3 g/dL (28.0-37.0); MCV 89.1 fL (80.0-100.0); MONOCYTES 11.7 %; MPV 9.4 fl. (7.2-11.1); NUCLEATED RBCS 0 /100WBC; RBC 5.19 mil/uL (4.50-6.00); RDW-CV 15.8 % (10.5-14.5); WBC 8.5 thou/uL (4.0-11.0)
[2021-09-27 19:10] LABS: CALCIUM 8.4 mg/dL (8.5-10.1); CREATININE 1.2 mg/dL (0.6-1.3); POTASSIUM 4.4 mmol/L (3.5-5.1)
[2021-09-27 19:14] LABS: ALBUMIN 3.2 g/dL (3.4-5.0); TOTAL BILIRUBIN 0.4 mg/dL (<0.1-1.0); TOTAL PROTEIN 6.3 g/dL (6.4-8.2)
[2021-09-27 19:29] LABS: CLUMPED PLTS RARE; PLATELET ESTIMATE ADEQUATE
[2021-09-27 19:30] LABS: PLATELET COUNT* 166 thou/uL (150-400)
--- NOTE | 2021-09-27 20:22 | NUR ---
DAUGHTER, ANGY, GRANDCYRSU ERICKSON,
[2021-09-27 22:01] VITALS: BP 131/71
[2021-09-27 22:26] VITALS: BP 131/71
[2021-09-27 22:30] VITALS: BP 113/63
[2021-09-28 09:23] VITALS: BP 99/54
--- NOTE | 2021-09-28 10:22 | EKG ---
[place] [address] ELECTROCARDIOGRAM REPORT Name: KAILYN DYER Room: [address] ADM IN M.R.#: [id number] Admission: 09/27/21 Attend Phys: Ingrid Kern, Discharge: Date of : 36 Date of Service: 09/27/21 1848 Report #: [id number] THIS REPORT FOR: //name// [facility] ED Test Date: 2021-09-27 Test Time: 18:48:30 Pat Name: KAILYN DYER Department: Room: [facility] Gender: M Server Systems Administrator: : 1940 Requested By: Landon Joe Order Number: [id number] MD: Kwabena Khan Measurements Intervals [place] Rate: 74 P: 77 [place]: 164 QRS: 87 QRSD: 130 T: 66 QT: 390 QTc: 433 Interpretive Statements Sinus rhythm Right bundle branch block Compared to ECG 08/22/2021 08:16:32 Left posterior fascicular block no longer present Electronically Signed On 09-28-2021 10:22:41 WATCH ASSEMBLY INSPECTOR by Kwabena Khan [email or web address] <ELECTRONICALLY SIGNED> By: Kami Khan MD, FAC 09/28/21 1022 47 Kami Khan MD, FAC /EPI
[2021-09-28 16:00] VITALS: BP 106/55
[2021-09-28 20:00] VITALS: BP 117/68
[2021-09-29 03:58] LABS: ABSOLUTE EOSINOPHILS 0.2 thou/uL (0.0-0.7); ABSOLUTE LYMPHOCYTES 0.9 thou/uL (0.8-5.3); ABSOLUTE MONOCYTES 0.9 thou/uL (0.0-1.2); ABSOLUTE NEUTROPHILS 5.2 thou/uL (1.6-8.1); BASOPHILS 0.4 %; EOSINOPHILS 3.1 %; HEMATOCRIT 39.9 % (42.0-52.0); LYMPHOCYTES 12.6 %; MCH 29.8 pg (26.0-34.0); MCHC 33.3 g/dL (28.0-37.0); MCV 89.6 fL (80.0-100.0); MONOCYTES 12.7 %; MPV 8.7 fl. (7.2-11.1); NUCLEATED RBCS 0 /100WBC; PLATELET COUNT* 188 thou/uL (150-400); POLYS 71.2 %; RBC 4.45 mil/uL (4.50-6.00); RDW-CV 16.1 % (10.5-14.5); WBC 7.3 thou/uL (4.0-11.0)
[2021-09-29 04:15] LABS: CALCIUM 7.4 mg/dL (8.5-10.1); CREATININE 1.1 mg/dL (0.6-1.3); POTASSIUM 4.1 mmol/L (3.5-5.1)
[2021-09-29 05:00] VITALS: BP 120/72
[2021-09-29 05:29] LABS: HEMOGLOBIN 13.3 gm/dL (14.0-18.0)
[2021-09-29 08:00] VITALS: BP 97/56
--- NOTE | 2021-09-29 09:10 | NUR ---
Pt is admitted to the hospital on 09/27/21 with abdominal pain. Pt is alert, oriented, but [place]. Pt is agitated by his breakfast as he is on a clear liquid diet. Pt reports he lives alone in a home with 2 steps to enter and 12 stairs to go down to the basement. He reports his daughter - Caitie helps him when needed. Pt has a hx of [facility]. Pt reports no hx of DME/SNF. Pt reports he was independent in ADL's and Mobility. Pt fills his prescriptions at [facility] - and at this time does not have a PCP. Will provide resources for pt to obtain a PCP. CM to continue to follow for discharge planning.
--- NOTE | 2021-09-29 13:43 | NUR ---
Team Meeting today the doctor discussed discharging pt today home with home health. Met with pt to further discuss. Pt is very [place] and difficult to communicate with. He tells me he hasn't seen a doctor in a long time. He discussed last doctor he saw was Dr. Yasemin Ariza in [place], [place]. Attempted to call her office at ([phone]) and had to leave a message to find out if they would sign home health orders. Pt lives in [place], [place]. This is close to the [place], [place] area. Attepted to call dtr to discuss but no answer at: [phone] as she lives here in [place], [place]. Waiting for return phone call to see if doctor will even sign orders if he hasn't seen her for a long time. Will discuss with nurse. CM to continue to follow for discharge planning.
[2021-09-29] MEDS ORDERED: FOLIC ACID1 MG PO (15:04)
[2021-09-29] MEDS ORDERED: VITAMIN B-121000 MC2 SUBLING (15:04)
[2021-09-29] MEDS ORDERED: VITAMIN B-1100 M2 PO (15:04)
[2021-09-29] MEDS ORDERED: SUPER THERAVIT1 EACH PO (15:04)
[2021-09-29] MEDS ORDERED: VITAMIN C500 M2 PO (15:04)
[2021-09-29 15:15] VITALS: BP 127/72
[2021-09-29 15:19] VITALS: BP 97/56
[2021-09-29 16:01] VITALS: BP 97/56
--- NOTE | 2021-09-29 16:52 | NUR ---
DISCHARGE ORDERS RECEIVED. DISCHARGE INSTRUCTIONS, CARE NOTES, E SCRIPTS AND FOLLOW UP APPTS GIVEN TO PT. PT COMMUNICATES UNDERSTANDING OF DISCHARGE TEACHING. IV REMOVED. PT MED SURG STATUS-NO COMMODITY MANAGER IN PLACE. PT DISCHARGED WITH ALL BELONGINGS AND PAPERWORK VIA WHEELCHAIR WITH NURSING STAFF TO DAUGHTER OWN PERSONAL VEHICLE.
--- NOTE | 2021-09-30 15:52 | NUR ---
[facility]'s [facility] health needed to be [facility] up under his Medicare. Called [facility] and they have accepted pt.
== END 2021-09-29 16:55 | disposition home health service (06) | DRG 844 ==
LOC: M.ERS 17:59 → M.TBA-ER 21:08 → M.2W 21:08
PROVIDERS: Emergency Medicine Emergency Medical Services; Internal Medicine; ADMIT Internal Medicine; ATTEND Internal Medicine
DX: C79.9 Secondary malignant neoplasm of unspecified site (principal); C64.9 Malignant neoplasm of unspecified kidney, except renal pelvis; E44.0 Moderate protein-calorie malnutrition; Z68.1 Body mass index [BMI] 19.9 or less, adult; F17.210 Nicotine dependence, cigarettes, uncomplicated; Z20.822 Contact with and (suspected) exposure to COVID-19; E86.0 Dehydration; T50.905A Adverse effect of unspecified drugs, medicaments and biological substances, initial encounter; Y92.89 Other specified places as the place of occurrence of the external cause; Z90.5 Acquired absence of kidney; Z85.028 Personal history of other malignant neoplasm of stomach; Z85.118 Personal history of other malignant neoplasm of bronchus and lung; Z92.21 Personal history of antineoplastic chemotherapy